=== PATIENT | female | born 1990 | race Caucasian/White ===

== ENCOUNTER 2018-04-18 07:37 | Outpatient (CLI) | payer OTHER ==
--- NOTE | 2018-04-18 10:19 | ULT ---
RIGHT BREAST ULTRASOUND: Date: 04/18/18 HISTORY: Right breast lump. FINDINGS: Sonographic evaluation of the region of palpable concern at the 10 o'clock position of the right [address] demonstrates a well circumscribed, oval, solid, nonshadowing mass measuring 2.7 x 2.6 x 1.2 cm. Th is most likely represents a fibroadenoma. IMPRESSION: BIRADS Category 3 - Probably benign findings. 6 month follow-up right breast ultrasound is recommende d if the diagnosis is not confirmed with biopsy. The facility will notify patient of need for additional imaging services. POS: OFF
== END 2018-04-18 07:38 | disposition home or self-care (01) ==
LOC: BICULT 07:37
PROVIDERS: ATTEND Obstetrics & Gynecology
DX: N63.10 Unspecified lump in the right breast, unspecified quadrant (principal)

== ENCOUNTER 2018-07-10 01:49 | Outpatient (CLI) | payer OTHER ==
[2018-07-10 08:37] LABS: #Eosinphils 0.3 thou/uL (0.0-0.7); #Lymphocytes 2.3 thou/uL (1.20-3.40); #Monocytes 0.4 thou/uL (0.11-0.59); #Neutrophils 4.1 thou/uL (1.40-6.50); %Basophils 0.6 % (0.0-1.0); %Eosinophils 4.3 % (0.0-10.0); Hemoglobin 14.9 g/dL (12.0-16.0); Mean Corpuscular HGB CONC 33.8 g/dL (32.0-36.0); Mean Corpuscular Hemoglobin 31.6 pg (27.0-31.0); Mean Corpuscular Volume 93.6 fL (78.0-98.0); Mean Platelet Volume 7.4 fL (7.4-10.4); Platelet Count 320 thou/uL (130-400); RBC Distribution Width 11.7 % (11.5-14.5); Red Blood Cell (RBC) Count 4.71 mill/uL (4.20-5.40); White Blood Cell (WBC) Count 7.2 thou/uL (4.8-10.8)
[2018-07-10 08:48] LABS: BHCG - Serum Negative (NEGATIVE); Pregs Control Background? CLEAR/WHITE (CLR/WHITE); Pregs Control Bar Appear? YES (CONTROL BAR)
== END 2018-07-10 01:50 | disposition home or self-care (01) ==
LOC: LABBT 01:49
PROVIDERS: ATTEND Surgery
DX: Z01.818 Encounter for other preprocedural examination (principal); N63.10 Unspecified lump in the right breast, unspecified quadrant
CPT/HCPCS: 84703; 85025; 93005; 93010

== ENCOUNTER 2018-07-12 05:59 | Day surgery (SDC) | payer OTHER ==
[2018-07-10 08:37] VITALS: BMI 21.9
[2018-07-12] MEDS ORDERED: Scopolamine 1.5 mg/72 hour Patch ONE (06:43)
[2018-07-12] MEDS ORDERED: Bupivacaine HCl 0.5%/Epinephrine 1:200,000/PF 30 ml Vial ONE (06:59)
[2018-07-12] MEDS ORDERED: Lidocaine 2% PF 5 ML VIAL ONE (07:00)
[2018-07-12] MEDS ORDERED: Midazolam HCl 2 mg/2 ml Vial ONE (07:18)
[2018-07-12] MEDS ORDERED: Fentanyl 100 MCG/2 ML VIAL ONE (07:18)
--- NOTE | 2018-07-12 10:06 | HP ---
CHIEF COMPLAINT: Right breast mass. HISTORY OF PRESENT ILLNESS: The patient is a 28-year-old female, who had an excision of a fibroadenoma on the right breast about 10 years ago. She has developed another mass in the upper right breast since February. She has also had breast implants placed. No family history. Ultrasound shows a 2-cm nodule consistent with fibroadenoma. PAST MEDICAL HISTORY: Significant for otherwise being healthy. PAST SURGERIES: Breast augmentation in 2014, right breast mass removed in 2008. MEDICATIONS: 1. Oral contraceptives. 2. Amlodipine. ALLERGIES: NO KNOWN DRUG ALLERGIES. FAMILY HISTORY: Father with heart disease. Mother is in good health. SOCIAL HISTORY: She is . No tobacco. She has occasional alcohol. PHYSICAL EXAMINATION: VITAL SIGNS: Height 67, weight 140, and body mass index 22. GENERAL: Well-developed, well-nourished female, in no apparent distress. HEENT: Unremarkable. LUNGS: Clear. HEART: Regular rate and rhythm. BREASTS: She has a 1.5-cm mobile mass upper outer right breast. LYMPHATICS: No lymphadenopathy. ABDOMEN: Soft, nondistended, and nontender. No masses or hernias. EXTREMITIES: Good pulses. No pedal edema. 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 PLAN: Excisional biopsy. CONSENT: Discussed planned procedure as well as risk of bleeding, infection, and recurrence. She understands and gives informed consent. Job ID: [id number]
--- NOTE | 2018-07-12 11:38 | OP ---
DATE OF PROCEDURE: 07/12/2018 PREOPERATIVE DIAGNOSIS: Right breast mass. PROCEDURE PERFORMED: Right excisional breast biopsy. INDICATIONS: A 28-year-old female, who has an enlarging mass in the upper outer right breast. Ultrasound suggested it to be a fibroadenoma. FINDINGS: A 2.5 cm rubbery mass far upper outer right breast. DESCRIPTION OF PROCEDURE: After informed consent was obtained, the patient was taken to the operating room and given general mask anesthesia. She was placed in the supine position. Her breast was prepped and draped in usual fashion. Some local anesthesia was infiltrated subcutaneously and deep and per the patient's request, a circumareolar incision was performed. A long tunnel had to be created to get to this area in the subcu. The patient had breast implants in place as well. So, I had to go very careful to avoid entering the capsule and to just kind of a skive just under the subcu to the far upper outer right breast. Eventually, I got to the mass, which was mobile. The mass was secured by suturing a 2-0 Vicryl to it to allow the handle to grab it. Then, careful dissection was performed circumferentially in order to excise it from its location. It was marked with the white suture anterior, black suture superior, and a blue suture lateral, sent to Pathology for further analysis. Hemostasis achieved with electrocautery. The cavity was irrigated with saline. Hemostasis assured. Subcu reapproximated with interrupted 3-0 Vicryl. The skin closed with a running subcuticular 4-0 Rapide. Steri-Strips applied. Sterile bandage applied. The patient tolerated the procedure well, transferred to Recovery in good condition. Sponge and needle count verified correct x2. Job ID: [id number]
[2018-07-12] MEDS ORDERED: Ondansetron PF 4 MG/2 ML Vial ONE (15:24)
[2018-07-12] MEDS ORDERED: PROPOFOL 200 MG/20 ML VIAL ONE (15:24)
[2018-07-12] MEDS ORDERED: Lidocaine 1% PF 5 ML VIAL ONE (15:24)
[2018-07-12] MEDS ORDERED: Dexamethasone 20 MG/5 ML VIAL ONE (15:24)
== END 2018-07-12 09:50 | disposition home or self-care (01) ==
LOC: SDC 05:59
PROVIDERS: ATTEND Surgery
PROC: 0HBT3ZX Excision of Right Breast, Percutaneous Approach, Diagnostic (ICD-10-PCS; principal; 2018-07-12)
DX: D24.1 Benign neoplasm of right breast (principal); Z79.899 Other long term (current) drug therapy; Z98.82 Breast implant status
CPT/HCPCS: 88307; J0670; J0690; J1100; J2001; J2250; J2405; J2704; J3010